=== PATIENT | male | born 1960 | race Caucasian/White ===

== ENCOUNTER 2020-01-21 10:26 | Emergency (ER) | payer OTHER ==
[~2020-01-21] VITALS: Ht 177.8 cm; Wt 117.9 kg
[2020-01-21 10:26] VITALS: Ht 177.8 cm; Wt 117.9 kg
== END 2020-01-21 16:45 | disposition expired ==
LOC: ED 10:26
DX: I46.9 Cardiac arrest, cause unspecified (principal); I10 Essential (primary) hypertension; Z88.0 Allergy status to penicillin
CPT/HCPCS: 82962; J3490